=== PATIENT | male | born 1930 | race Caucasian/White ===

== ENCOUNTER → 2017-02-26 | Outpatient (CLI) | payer MEDICARE, OTHER, MEDICAID ==
[~2017-02-26] MED LIST: AMIO100T4 PO; AMLO10TA2 PO; CARV6.252 PO; CIPR-225 PO; LORA-405 PO; LORA10TA7 PO; MELA1TAB10 PO; OMG1KC PO; PHEN-639 PO; POTA20TA15 PO; PRAV80TA2 PO; RANI-515 PO; RIVA1PAT12 TD; SENN-109 PO; SERT50TA9 PO; TERA5CAP3 PO; WARF2.5T PO
--- NOTE | 2017-02-26 15:22 | Diagnostic Imaging Report ---
PROCEDURE: CT abdomen and pelvis without contrast. TECHNIQUE: Multiple contiguous axial images were obtained through the abdomen and pelvis without the use of intravenous contrast. INDICATION: Right renal stones. FINDINGS: The lung bases demonstrate emphysema changes and mild fibrotic interstitial changes. There is a tiny hiatal hernia. Trace amount of pericardial fluid is also seen. There is severe right hydronephrosis secondary to ureteropelvic junction elongated 1.5 cm stone. There are other nonobstructive stones seen in the renal pelvis. There is a 1.6 cm stone seen within the posterior aspect of the urinary bladder. There is no definite stone in the left kidney with calcifications near the left renal hilum which appears to be vascular. Of note, there is also a 6.7 cm cystic area along the posterior aspect of the right kidney. This might represent an incidental cyst or a dilated caliceal diverticulum. The right renal parenchyma demonstrates mild atrophy. The prostate is the slightly heterogenous and mildly enlarged at 55.1 cm in transverse dimension. The appendix appears normal. The abdominal aorta demonstrates associated calcifications and is normal in caliber. No para-aortic significantly enlarged lymph nodes seen. There is no free fluid or fluid collection in the abdomen or pelvis. There is extensive colonic diverticulosis, mostly in the sigmoid and descending colon with no evidence of diverticulitis. There is a small direct inguinal hernia with small bowel loop projecting into it there appears otherwise normal in caliber and with no wall thickening. The osseous structures demonstrate degenerative changes and suggestion of osteopenia. Sclerotic focus measuring 7 mm in the right femoral head is likely an incidental bony island. IMPRESSION: 1. There is severe right hydronephrosis secondary to an obstructive 1.5 cm right ureteric junction stone. 2. Other nonobstructive stones up to 5 mm in the right renal pelvis and also a 1.6 cm in the urinary bladder seen. 3. Direct right inguinal hernia with slight herniation of a small bowel loop with no obstruction. 4. Extensive colonic diverticulosis. No evidence of diverticulitis. 5. Emphysema. Dr. Rapp was called and informed about the findings at time of dictation by Dr. Crowe. Report faxed to Dr. Rapp at 3:23 p.m. 02/26/2017/cb Dictated by: Dictated on workstation # [id number]
--- NOTE | 2017-02-26 20:15 | Diagnostic Imaging Report ---
KUB. INDICATION: Right renal stones. FINDINGS: Correlation with CT scan performed on the same day is performed. There is a 2.1 cm in the right pelviureteric junction projecting just above the right SI joint on this plain film. Other nonobstructive stones based on the CT scan are in the right renal pelvis and measure 7 mm, seen at the L4 level. There is another stone measuring 1.9 cm in the pelvis within the urinary bladder. IMPRESSION: Stones in the right renal pelvis and in the urinary bladder as described. Dictated by: Dictated on workstation # [id number]
== END ==
LOC: RAD 13:25
PROVIDERS: ATTEND Urology
DX: N20.0 Calculus of kidney (principal); N20.1 Calculus of ureter; K57.32 Diverticulitis of large intestine without perforation or abscess without bleeding; J43.9 Emphysema, unspecified; K40.90 Unilateral inguinal hernia, without obstruction or gangrene, not specified as recurrent
CPT/HCPCS: 74000; 74176

== ENCOUNTER 2017-03-02 13:51 | Outpatient (CLI) | payer MEDICARE, OTHER, MEDICAID ==
[~2017-03-02] VITALS: Ht 167.6 cm; Wt 75.5 kg
[2017-03-02 14:10] VITALS: BP 149/72
[2017-03-02 14:42] LABS: BASOPHILS # (AUTO) 0.1 10^3/uL (0.0-0.1); BASOPHILS % (AUTO) 1 % (0-10); EOSINOPHILS # (AUTO) 0.5 10^3/uL (0.0-0.3); EOSINOPHILS % (AUTO) 7 % (0-10); LYMPHOCYTES # (AUTO) 1.5 X 10^3 (1.0-4.0); LYMPHOCYTES % (AUTO) 22 % (12-44); MEAN CORPUSCULAR HEMOGLOBIN 29 PG (25-34); MEAN CORPUSCULAR HGB CONC 33 G/DL (32-36); MEAN CORPUSCULAR VOLUME 89 FL (80-99); MONOCYTES # (AUTO) 1.1 X 10^3 (0.0-1.0); MONOCYTES % (AUTO) 15 % (0-12); NEUTROPHILS # (AUTO) 3.8 X 10^3 (1.8-7.8); NEUTROPHILS % (AUTO) 54 % (42-75); PLATELET COUNT 219 10^3/uL (130-400); RED BLOOD COUNT 4.01 10^6/uL (4.35-5.85); RED CELL DISTRIBUTION WIDTH 15.7 % (10.0-14.5)
--- NOTE | 2017-03-02 14:49 | Diagnostic Imaging Report ---
INDICATION: Preop for right renal stone manipulation. PA and lateral chest obtained at 02:54 p.m. Heart is borderline in size. Aorta is tortuous. There is some perihilar scarring. There is no focal consolidation, pneumothorax, or pleural fluid. There are compression deformities in the mid thoracic spine which appear chronic. IMPRESSION: Borderline heart size with tortuous aorta. There is some perihilar scarring. There is no focal consolidation, pneumothorax, or pleural fluid. There are old compression deformities in the mid thoracic spine. Dictated by: Dictated on workstation # [id number]
[2017-03-02 14:59] LABS: CALCIUM 9.2 MG/DL (8.5-10.1); CREATININE SERUM 1.82 MG/DL (0.60-1.30); POTASSIUM 4.3 MMOL/L (3.6-5.0)
[2017-03-03] MEDS ORDERED: SERT50TA9 PO (06:26)
[2017-03-03] MEDS ORDERED: RANI-515 PO (06:26)
[2017-03-03] MEDS ORDERED: OMG1KC PO (06:26)
[2017-03-03] MEDS ORDERED: PRAV80TA2 PO (06:26)
[2017-03-03] MEDS ORDERED: AMIO100T4 PO (06:26)
[2017-03-03] MEDS ORDERED: SENN-109 PO (06:26)
[2017-03-03] MEDS ORDERED: MELA1TAB10 PO (06:26)
[2017-03-03] MEDS ORDERED: CARV6.252 PO (06:26)
[2017-03-03] MEDS ORDERED: TERA5CAP3 PO (06:26)
[2017-03-03] MEDS ORDERED: LORA10TA7 PO (06:26)
[2017-03-03] MEDS ORDERED: POTA20TA15 PO (06:26)
[2017-03-03] MEDS ORDERED: LORA-405 PO (06:26)
[2017-03-03] MEDS ORDERED: WARF2.5T PO (06:26)
[2017-03-03] MEDS ORDERED: AMLO10TA2 PO (07:15)
[2017-03-03] MEDS ORDERED: RIVA1PAT12 TD (07:15)
[2017-03-03] MEDS ORDERED: CIPR-225 PO (10:27)
[2017-03-03] MEDS ORDERED: PHEN-639 PO (10:27)
== END 2017-03-02 15:00 | disposition home or self-care (01) ==
LOC: PREOP 13:51
PROVIDERS: ATTEND Urology
DX: Z01.810 Encounter for preprocedural cardiovascular examination (principal); Z01.811 Encounter for preprocedural respiratory examination; Z01.812 Encounter for preprocedural laboratory examination; Z11.2 Encounter for screening for other bacterial diseases; N20.0 Calculus of kidney; N21.0 Calculus in bladder
CPT/HCPCS: 36415; 71020; 80048; 85025; 87081; 93005

== ENCOUNTER 2017-03-03 06:10 | Day surgery (SDC) | payer MEDICARE, OTHER, MEDICAID ==
[~2017-03-03] VITALS: Ht 167.6 cm; Wt 75.5 kg
[2017-03-03] MEDS ORDERED: SENN-109 PO (06:26)
[2017-03-03] MEDS ORDERED: AMIO100T4 PO (06:26)
[2017-03-03] MEDS ORDERED: OMG1KC PO (06:26)
[2017-03-03] MEDS ORDERED: PRAV80TA2 PO (06:26)
[2017-03-03] MEDS ORDERED: SERT50TA9 PO (06:26)
[2017-03-03] MEDS ORDERED: LORA-405 PO (06:26)
[2017-03-03] MEDS ORDERED: CARV6.252 PO (06:26)
[2017-03-03] MEDS ORDERED: MELA1TAB10 PO (06:26)
[2017-03-03] MEDS ORDERED: RANI-515 PO (06:26)
[2017-03-03] MEDS ORDERED: WARF2.5T PO (06:26)
[2017-03-03] MEDS ORDERED: POTA20TA15 PO (06:26)
[2017-03-03] MEDS ORDERED: LORA10TA7 PO (06:26)
[2017-03-03] MEDS ORDERED: TERA5CAP3 PO (06:26)
[2017-03-03] MEDS ORDERED: NS (IVPB) 50 ML ONE (06:45)
[2017-03-03] MEDS ORDERED: cefTRIAXone 1 GM (ROCEPHIN) VIAL ONE (06:45)
[2017-03-03] MEDS ORDERED: LACTATED RINGERS 1,000 ML IV PRN (06:49)
--- NOTE | 2017-03-03 07:06 | Progress Note-Pre Operative ---
Pre-Operative Progress Note H&P Reviewed The H&P was reviewed, patient examined and no changes noted. Date H&P Reviewed: March 03, 2017 Time H&P Reviewed: 07:05 Pre-Operative Diagnosis: RT URETERAL, RENAL, AND BLADDER STONES JAVIER DINH MD March 03, 2017 7:06 am
--- NOTE | 2017-03-03 07:07 | Progress Note-Post Operative ---
Post-Operative Progess Note Surgeon (s)/Torpedo Worker (s) Surgeon JAVIER DINH MD Torpedo Worker: N/A Pre-Operative Diagnosis RT URETERAL, RENAL, AND BLADDER STONES Post-Operative Diagnosis SAME Procedure & Operative Findings Date of Procedure 03/03/17 Procedure Preformed/Findings CYSTO, RT URETERAL STONE MANIPULATION, AND ATTEMPTED JJ STENT WITH RETROGRADE UROGRAM Anesthesia Type GENERAL Estimated Blood Loss Estimated blood loss (mL): N/A Specimens/Packing Specimens Removed N/A Packing: N/A JAVIER DINH MD March 03, 2017 7:07 am
--- NOTE | 2017-03-03 07:09 | Discharge Inst-Urology ---
Discharge Inst-Urology Discharge Medications New, Converted, or Re-newed RX: RX on Chart Patient Instructions/Follow Up Plan Please make appointment to been seen in office in 3 weeks Increase oral fluids for 48 hours and then as needed. Diet and Activity as tolerated. If questions or concerns contact your physician Or seek help at emergency department. JAVIER DINH MD March 03, 2017 7:09 am
[2017-03-03] MEDS ORDERED: ONDANSETRON 4 MG/2 ML (SDV) Z0FRAN ONE (07:15)
[2017-03-03] MEDS ORDERED: RIVA1PAT12 TD (07:15)
[2017-03-03] MEDS ORDERED: cefTRIAXone 1 GM/NS 50 ML IVPB IV ONE ×2 (07:15)
[2017-03-03] MEDS ORDERED: proPOfol 200 MG/20 ML (DIPRIVAN) VIAL IV ONE (07:15)
[2017-03-03] MEDS ORDERED: ROCURONIUM 50 MG/5 ML (ZEMURON) VIAL IV ONE (07:15)
[2017-03-03] MEDS ORDERED: LIDOCAINE PF 2% 10 ML (XYLOCAINE) AMP ONE (07:15)
[2017-03-03] MEDS ORDERED: CATHETER FLUSH 10 ML SYR IV PRN (07:15)
[2017-03-03] MEDS ORDERED: LACTATED RINGERS 1,000 ML IV ONE (07:15)
[2017-03-03] MEDS ORDERED: AMLO10TA2 PO (07:15)
[2017-03-03] MEDS ORDERED: fentaNYL INJECTION 100 MCG/2 ML AMP ONE (07:16)
--- NOTE | 2017-03-03 07:22 | Diagnostic Imaging Report ---
INDICATION: Abdominal pain. COMPARISON: CT abdomen and pelvis of 02/26/2017. FINDINGS: Nonobstructive bowel gas pattern. Small volume of colonic stool. No evidence of free intraperitoneal air, though evaluation is limited without IV contrast. Multicystic changes throughout the right kidney are partially visualized due to peripheral rim of calcification in one of the dominant cyst in the upper pole of the right kidney. Stable calculus in the proximal right ureter measuring 1.8 cm. Urinary bladder calculus is also unchanged measuring 1.8 cm. No discrete left-sided urinary tract calculi. Atherosclerotic calcifications. IMPRESSION: 1. Compared to CT abdomen and pelvis from 02/26/2017, the proximal right ureter calculus is in similar position and the urinary bladder calculus also remains in place. Dictated by: Dictated on workstation # [id number]
[2017-03-03 07:32] VITALS: BP 172/76
[2017-03-03] MEDS ORDERED: SEVOFLURANE (ULTANE) 15 ML INHAL SOLN ONE (08:24)
[2017-03-03] MEDS ORDERED: ONDANSETRON 4 MG/2 ML (SDV) Z0FRAN IVP PRN (08:45)
[2017-03-03] MEDS ORDERED: morphine INJ 10 MG/ML 1ML (SYR OR VIAL) IVP PRN (08:45)
--- NOTE | 2017-03-03 09:06 | OPERATIVE REPORT ---
DATE OF SERVICE: 03/03/2017 DATE OF SURGERY: 03/03/17 PREOPERATIVE DIAGNOSES: 1. Right ureteral stone. 2. Right renal stone. 3. Bladder stone. POSTOPERATIVE DIAGNOSES: 1. Right ureteral stone. 2. Right renal stone. 3. Bladder stone. 4. Benign prostatic hypertrophy. OPERATION PERFORMED: 1. Cystoscopy. 2. Right ureteral stone manipulation. 3. Attempted insertion of double J stent. 4. Retrograde urogram. SURGEON: Dr. Parish Dinh. ANESTHESIA: General. COMPLICATIONS: None. DESCRIPTION OF PROCEDURE: Under satisfactory general anesthesia, the patient was placed in lithotomy position, genitalia prepped and draped in the usual sterile fashion. Cystoscope was introduced under direct vision. The anterior urethra was normal. The prostate revealed enlargement of the lateral lobe causing complete bladder neck obstruction. The bladder revealed 4+ trabeculation with cellules. The ureteric orifice was displaced upward and laterally and a large bladder stone was visualized. Using the foroblique lens, I passed 1st a 5-[place] ureteral catheter up the ureter. I could not manipulate it all the way to the stone so I was . I attempt to pass a double J sent but could not. I attempt to pass a Glidewire but again, was unable to do so. I passed again the urethral catheter, injected contrast and there was an S-shaped curvature of the upper ureter and into the level of the stone. With manipulation, I was able to manipulate the double J stent past the curvature to the level of the stone but I could not bypass the stone, I could not push the stone because of the big size of it and being most impacted into the UPJ for quite some time. I discontinued further attempts. Removed the stent, emptied the bladder, removed the cystoscope. The patient tolerated the procedure and anesthesia well and was sent to the recovery room in stable condition. PLAN: Observe for now. If he develops any kind of sepsis, will put a percutaneous nephrostomy. I do not think at his age and the size of the stone, would consider a flexible ureteroscopy or percutaneous so we will just observe hoping that he will do fine as he did for quite some time without having sepsis. This was fully explained to his family and later on to him. Job ID: [id number] DocumentID: [id number] Dictated Date: 03/03/2017 08:42:36 Commissions Manager Date: 03/03/2017 09:06:28 Dictated By: PARISH DINH MD
[2017-03-03 09:25] VITALS: BP 160/75
[2017-03-03 09:55] VITALS: BP 153/79
[2017-03-03 10:25] VITALS: BP 156/75
[2017-03-03] MEDS ORDERED: PHEN-639 PO (10:27)
[2017-03-03] MEDS ORDERED: CIPR-225 PO (10:27)
[2017-03-03 11:15] VITALS: BP 156/75
== END 2017-03-03 11:15 | disposition home or self-care (01) ==
LOC: SDC 06:10
PROVIDERS: ATTEND Urology
DX: N20.2 Calculus of kidney with calculus of ureter (principal); N21.0 Calculus in bladder; N40.0 Benign prostatic hyperplasia without lower urinary tract symptoms; N32.0 Bladder-neck obstruction; I48.91 Unspecified atrial fibrillation; E78.5 Hyperlipidemia, unspecified; Z87.891 Personal history of nicotine dependence; Z79.899 Other long term (current) drug therapy
CPT/HCPCS: 74000